=== PATIENT | male | born 2000 | race Caucasian/White ===

== ENCOUNTER 2022-07-27 21:59 | Emergency (ER) | payer SELFPAY ==
[~2022-07-27] VITALS: Ht 175.3 cm; Wt 80.0 kg
[2022-07-28] MEDS ORDERED: IBUPROFEN 600MG TABLET PO ONE (05:00)
[2022-07-28] MEDS ORDERED: CYCLOBENZAPRINE 10MG TABLET PO ONE (05:00)
[2022-07-28] MEDS ORDERED: CYCL10TA21 MT (05:59)
[2022-07-28] MEDS ORDERED: NAPR-1176 MT (05:59)
[2022-07-28 06:22] VITALS: BP 124/78
== END 2022-07-28 06:27 | disposition home or self-care (01) ==
LOC: ER 21:59
DX: S80.02XA Contusion of left knee, initial encounter (principal); S20.229A Contusion of unspecified back wall of thorax, initial encounter; S10.93XA Contusion of unspecified part of neck, initial encounter; W18.39XA Other fall on same level, initial encounter; Y93.89 Activity, other specified; Y92.89 Other specified places as the place of occurrence of the external cause; Y99.8 Other external cause status
CPT/HCPCS: 72128; 73562; 99284